=== PATIENT | male | born 1995 | race Caucasian/White ===

== ENCOUNTER 2017-02-06 22:40 | Emergency (ER) | payer BC ==
[~2017-02-06] VITALS: Ht 177.8 cm; Wt 61.8 kg
[2017-02-06 22:45] VITALS: TEMP 36.7; Ht 177.8 cm; Wt 61.8 kg
[2017-02-06 23:37] LABS: BASO % 0.2 %; BASO ABS # 0.02 K/uL (0-0.2); COMPLETE YES; EOS % 0.2 %; HEMATOCRIT 40.9 % (42-52); IG% 0.3 %; LYMPH % 11.2 %; LYMPH ABS # 1.24 K/uL (1.2-3.4); MEAN CELL VOLUME 85.6 fL (80-100); MEAN CORPUSCULAR HEMOGLOBIN 30.8 pg (25-34); MEAN CORPUSCULAR HGB CONC 35.9 g/dl (32-36); MEAN PLATELET VOLUME 9.8 fL (7.4-10.4); NEUT % 82.1 %; PLATELET COUNT 173 K/uL (130-400); RED BLOOD COUNT 4.78 M/uL (4.7-6.1); WHITE BLOOD COUNT 11.08 K/uL (4.8-10.8)
[2017-02-06 23:55] LABS: BUN/CREATININE RATIO 11.3 (10-20); CALCIUM 9.4 mg/dl (8.5-10.1); CREATININE 1.1 mg/dl (0.60-1.40); POTASSIUM 3.6 mmol/L (3.5-5.1)
[2017-02-07] MEDS ORDERED: KETOROLAC TROMETHAMINE 30 MG/ML VIAL IV STA (00:12)
[2017-02-07] MEDS ORDERED: DiphenhydrAMINE HCL 50 MG/ML VIAL IV STA (00:12)
[2017-02-07] MEDS ORDERED: MoRPHine SULFATE 4 MG/ML 1 ML CARP\\VIAL IV STA (00:55)
[2017-02-07] MEDS ORDERED: ONDANSETRON INJ 2 MG/ML 2 ML VIAL IV STA (00:55)
[2017-02-07 01:30] VITALS: BP 145/81; PULSE 92; O2SAT 98
[2017-02-07] MEDS ORDERED: ACETAMINOPHEN 325 MG TAB ONE (01:34)
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
== END 2017-02-07 01:40 | disposition home or self-care (01) ==
LOC: C.EDB 22:41 → C.EDC 02-07 01:40
DX: S06.0X0A Concussion without loss of consciousness, initial encounter (principal); W50.0XXA Accidental hit or strike by another person, initial encounter